=== PATIENT | female | born 1995 | race Caucasian/White ===

== ENCOUNTER 2021-02-21 06:48 | Inpatient (IN) | payer OTHER, SELFPAY ==
[2021-02-20 16:09] VITALS: BP 137/80; PULSE 75; TEMP 36.3
[2021-02-20 16:23] VITALS: BMI 44.5
[2021-02-20] MEDS: 0.9% Normal Saline Single 100 ML IV.SOLN. INTRA-UTER (16:44)
--- NOTE | 2021-02-20 16:44 | PCM.HP.OB ---
HPI - General HPI Narrative FLORENCIA AQUINO is a 26 F who presents Maternal Data Information Final KATHIE: 02/13/21 Gestational age: 41 0/7 weeks PFSH PFSH Home Medications [id number] [] 1 tab PO DAILY 02/20/21 [History Last Taken 02/19/21] Allergy/AdvReac Type Severity Reaction Status Date / Time No Known Allergies Allergy Verified 02/20/21 16:23 NST FHR Rate Baby A Baseline: normal Variability:: Moderate Accelerations:: 15 x 15 Decelerations:: None NST Reactive:: Yes FHR Category:: Category I Uterine Activity:: irreg ctxs ROS Constitutional Constitutional: Denies fatigue, fever(s) or malaise Eyes Eyes: Denies change in vision ENT HEENT: Denies dizziness or headache(s) Cardiovascular Cardiovascular: Denies chest pain, dyspnea or lightheadedness Respiratory/Chest Respiratory/Chest: Denies cough or dyspnea Gastrointestinal Gastrointestinal: Denies change in bowel habits Genitourinary Genitourinary: Denies burning urination or genital lesions Integumentary Integumentary: Denies rash Neurologic Neurologic: Denies confusion, dizziness, headache(s), numbness or weakness Vital Signs Vital Signs Vital Signs: 02/20/21 16:09 Temperature 97.3 F L Temperature Source Temporal Pulse Rate 75 Blood Pressure 137/80 H BP Systolic 137 BP Diastolic 80 Weight Weight: 129 kg Body Mass Index (BMI) 44.5 Physical Exam Const alert and no apparent distress General Appearance: cooperative HEENT normocephalic Resp normal respiratory effort Cardio regular rate GI soft to palpation GI Narrative: gravid, nontender, appropriate for gestational age Extremity no calf tenderness General Extremity: edema Skin no wounds Rashes: No rashes noted Psych activity/motor behavior normal Labs Labs Labs: No Data to Display Assessment & Plan (1) 41 weeks gestation of : PLAN: 26-year-old 2 para 0 at 41-0/7 weeks gestation for induction of labor due to late term . Cervix 1/60/-3, mid poistion, firm. Risk benefits altered is and personnel involved with outpatient cervical ripening with Russell catheter were reviewed with the patient, questions were answered to her satisfaction, consent was signed and she desired to proceed. Will return in the morning for induction, or as needed for labor or spontaneous rupture of membranes. Discussed with the patient expectations. Procedure note: After reactive NST was performed, Russell was placed over a stylette in the usual sterile fashion. The balloon was inflated to 30 cc. Placement over the internal os was confirmed. Patient and fetus tolerated the procedure well.
[2021-02-21] VITALS (46 sets, daily range): BP systolic 91–137; BP diastolic 50–79; PULSE 61–190; TEMP 36.2–37.1; O2SAT 82–100; BMI 44.5
[2021-02-21] MEDS: Lactated Ringers 1,000 ML 50 ML IV (08:05)
--- NOTE | 2021-02-21 08:16 | PCM.PN.BLA ---
Progress Note Patient reports Russell bulb came out around 1 AM. Vaginal exam /-2. AROM performed thin meconium appreciated. Will start Pitocin and anticipate a normal spontaneous vaginal delivery. heart rate category 1.
[2021-02-21] MEDS: Oxytocin 30 units/NS 500 ml 30 UNITS/500 ML IV.SOLN IV (08:19)
[2021-02-21 08:29] LABS: Absolute Lymphocyte Count 1.75 X10^3/uL (0.83-4.51); Absolute Neutrophil Count 7.9 X10^3/uL (2.0-7.7); Basophil# 0.02 X10^3/uL; Basophil% 0.2 % (0-1); Eosinophil# 0.08 X10^3/uL; Eosinophils% 0.8 % (0-5); Hematocrit 33.3 % (37-47); Hemoglobin 10.9 g/dL (12.0-15.0); Lymphocyte # 1.75 X10^3/ul (0.83-4.51); Lymphocyte % 16.7 % (19-41); Mean Corp Hgb Conc 32.7 g/dL (32-36); Mean Corpuscular Hgb 26.5 pg (27.0-32.0); Mean Platelet Vol. 11.3 fl (6.2-12.0); Monocyte# 0.75 X10^3/uL; Monocyte% 7.1 % (0-10); NRBC Flagged by Analyzer 0 % (0-5); Neutrophil # 7.86 X10^3/uL (2.7-7.7); Neutrophil % 74.7 % (47-70); Platelet Count 231 K/mm3 (150-450); RBC Distribution Width CV 13.2 % (11.6-14.6); RBC Distribution Width SD 38.6 fl (35.1-43.9); Red Blood Count 4.11 M/mm3 (4.2-5.4); White Blood Count 10.5 K/mm3 (4.4-11.0)
[2021-02-21] MEDS: Lactated Ringers 500 ML 999 ML IV ×3 (13:59→21:18)
[2021-02-21] MEDS: fentaNYL-bupivacaine (epidural) 100 ML BAG EPIDURAL ×3 (15:48→23:30)
[2021-02-21] MEDS: Lactated Ringers 1,000 ML 200 ML IV (18:37)
[2021-02-22] VITALS (85 sets, daily range): BP systolic 102–141; BP diastolic 53–88; PULSE 65–100; RESP 13–20; TEMP 36.1–38.9; O2SAT 93–100
[2021-02-22] MEDS: Lactated Ringers 1,000 ML 200 ML IV ×2 (00:14→04:44)
[2021-02-22] MEDS: fentaNYL-bupivacaine (epidural) 100 ML BAG EPIDURAL (04:44)
[2021-02-22] MEDS: Ondansetron 4 MG/2 ML Vial IV (04:50)
[2021-02-22] MEDS: Acetaminophen 500 MG Tablet PO (05:59)
--- NOTE | 2021-02-22 07:28 | PCM.PN.BLA ---
Progress Note Patient seen at bedside and evaluated. tachycardia 170s 180s with variable decelerations. Patient has been complete and pushing for approximately 2-1/2 hours. station still at +1 small caput noted. Thick meconium appreciated. Upon evaluation minimal descent of the head not adequate enough for vacuum placement at this time. Discussion with the patient for primary section due to tachycardia remote from delivery. We discussed the risk and benefits of continued pushing versus proceeding with a section patient would like to proceed with a at this time. Patient was counseled on the risks of section including but not limited to infection, bleeding, injury to pelvic structures including bladder bowel and vessels. ampicillin, gentamicin, clindamycin will be started for suspected AAA.
[2021-02-22] MEDS: Sodium Citrate/Citric Acid 30 ML UDC PO (07:34)
--- NOTE | 2021-02-22 09:20 | PLAC_PTH ---
PATIENT: FLORENCIA AQUINO LOC: [facility] U#:[id number] AGE/SX: 26/F ROOM: WP016 RE02/21/[address]: Dr. Arelis Shelley, MDDOB: 1995 BED: 1 DIS: 02/24/2021 SPEC #: [id number] RECD: 02/22/21 13:14 STATUS: MARCELLA RUSTY #: [id number] MALIA: 02/22/21 09:[address]: Arelis Shelley DEPT: SURGICAL PATHOLOGY RECD BY: Baylee Rajput ENTERED: 02/25/21 08:03 SP TYPE: PLACENTA OTHR DR: No Primary Care Phys Tissues: Placenta, NOS Procedures: Surgery Specimen Level V HEADER OPERATION: section PRE-OP DIAGNOSIS: Suspect triple I TISSUE SUBMITTED: Placenta MICROSCOPIC DIAGNOSIS Edwards placenta (505 gm): Umbilical cord ? trivascular with acute funisitis. Placental membranes ? acute chorioamnionitis and acute deciduitis. Placental disc ? acute vasculitis of superficial placental vessels, intravillous congestion, increased intraparenchymal fibrin plaques and microcalcifications. AM:michelle 02/26/2021 MICROSCOPIC DESCRIPTION Slides are reviewed. GROSS DESCRIPTION SPECIMEN: PLACENTA / CLINICAL INFORMATION: A. Weight: 3.52 kg B. Gestational Age: 41 weeks C. Sex: Female PLACENTAL WEIGHT (POST FIXATION): 505 gm PLACENTAL DIMENSIONS: 21 x 19 x 2.5 cm PLACENTAL SHAPE: Usual ovoid PLACENTAL WEIGHT FOR GESTATIONAL AGE: Within 10-99th percentile MEMBRANES - Present A. Insertion: Marginal B. Site of rupture from edge: At edge of placental disc C. Color of membrane: Anderson-bird D. Abnormalities: None UMBILICAL CORD - Present A. Color: Anderson-bird B. Insertion: Paracentral C. Length: 38 cm D. Diameter: 1.3 cm E. Number of vessels: Three F. Abnormalities: None PLACENTAL DISC - Present A. Color of surface: Anderson-bird B. surface abnormalities: None C. Maternal cotyledons: Intact with minimal tears D. Attached retro placental clot: No clot E. Cut surface: Dark red and spongy F. Lesions: None G. Separate clot: 7 x 5 x 2 cm SECTIONS SUBMITTED: 1. Umbilical cord ( end notched) 2. Umbilical cord, placental end 3. Membrane roll 4. Placental disc, and maternal surfaces 5. Placental disc, and maternal surfaces 6. Placental disc, and maternal surfaces AM:michelle 02/25/21 TC:2 CPT: 39047
--- NOTE | 2021-02-22 09:24 | EX.PCM.OBRPT ---
Assessment & Plan (1) Arrest of descent, delivered, current hospitalization: (2) tachycardia: (3) Meconium in amniotic fluid affecting management of mother: (4) Delivery by section: Maternal Data Information Final KATHIE: 02/13/21 Final KATHIE Source: US <20 weeks Gestational age: 41.2 Details Operative Information Date of Procedure: 02/22/21 Pre-Operative Diagnosis: tachycardia, Arrest of descent, suspect Triple I, suspect CPD, meconium fluid Post-Operative Diagnosis: same, live female , Hemorrhage associated with C/S. 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 ) Antibiotic Given: Clindamycin 600mg IV x1 and Gentamicin 1.5mg/kg IV x1 and - (ampcillin 2grams) Drain: Russell to straight drain Estimated Blood Loss: 1000 Fluids Replaced: 600 Procedure Start Time: 08:13 Procedure Stop Time: 09:25 Time of Delivery: 08:15 Findings Description of Procedure: After informed consent was obtained the patient was taken the operating room. At this time the infant's head was disengaged from the maternal pelvis. She was prepped and draped in the normal sterile fashion. Epidural anesthesia was found to be inadequate. Decision at this time was to put the patient under general anesthesia. Once general anesthesia was induced and airway secured procedure started. At this time a Pfannenstiel skin incision was made with a knife was carried down to the underlying layer of the fascia. The fascial incision was then extended laterally using curved Dong scissor. attention was then turned to the superior aspect of the fascial edge was grasped with 2 straight Matthew clamps tented up and the rectus muscle dissected off sharply using curved Dong scissor. Attention was then turned to the inferior aspect where again Max clamps were placed in the rectus muscles were tented up and the fascia was dissected off sharply using the curved Dong scissor. Rectus muscles were then in the midline bluntly and peritoneum was entered bluntly. Gentle opposing traction was placed. At this time the vesicouterine peritoneum was identified. Scalpel was used to make a uterine incision in a low transverse fashion. The uterus was then entered bluntly gentle opposing traction was placed to extend this incision. With assistance from below 's head was disengaged from the pelvis. Infant's head was brought to the uterine incision was delivered atraumatically. Cord was clamped and cut was handed to the waiting nursery team. Thick meconium was again appreciated. The Placenta was removed from the uterus. The uterus was then removed from the abdominal cavity. Bilateral extensions down uterus were appreciated. The extensions were grasped with Krishnamurthy's and rings. Extensions were reapproximated using #1 Vicryl in a running locked fashion. The uterus was cleared of all clots and debris using a lap. At this time the uterine incision was reapproximated using #1 Vicryl in a running locked fashion, followed by a second layer. Bilateral extensions were reevaluated multiple times very small amount of oozing was appreciated. Decision to place Surgicel and FloSeal. Areas were monitored minimal pulling was appreciated. posterior cul-de-sac was then cleared of all clots and debris. Uterus was placed back in the abdominal cavity. Gutters were cleared of all clots and debris. Uterine incision was reevaluated and noted to be of excellent hemostasis. Bilateral extensions were again evaluated minimal pooling noted. Decision at this time to continue with closure. At this time the peritoneum was grasped with Kellys reapproximated using #2 Vicryl suture in a running fashion. Fascia was then reapproximated using #1 Vicryl in a running fashion. Subcu layer was reapproximated with #2 0 plain gut suture in an interrupted fashion. Subcu layer was closed using 4-0 Monocryl in a subcu fashion. Dry sterile dressing was applied. Instrument lap needle count correct ?2. Anticipated normal postoperative course. Presentation: Positive for Vertex Amniotic Membrane Rupture Type: Artificial Amniotic Fluid Description: Thick meconium Placental Delivery Description: Manual Removal Placenta Disposition: Routine to Lab Specimen(s) Sent to Pathology: placenta Cord Vessel Description: 3 Vessels Cord Entanglement: None Cord Gases: ABG and VBG Infant A Gender: Female (1 minute): 6 (5 minute): 9 Delayed Cord Clamping: No Complications Risks of Surgery Discussed w/Patient: Bleeding, Anesthesia Risks, Infection, Injury to surrounding structure(s) including bowel and bladder and Availability of other non-permanent control options Complications: bilateral extensions - discussed with recommend scheduled repeat cs for any future pregnancies. Admit VTE Documentation VTE Present on Admission: Yes VTE Mechan Device Prophylaxis: SCD's VTE Pharm Prophylaxis Ordered: Yes
[2021-02-22] MEDS: Oxytocin 30 units/NS 500 ml 30 UNITS/500 ML IV.SOLN 167 UNITS IV (09:35)
[2021-02-22] MEDS: Acetaminophen 500 MG Tablet 1000 MG PO ×2 (11:47→18:15)
[2021-02-22 12:09] LABS: Hematocrit 29.5 % (37-47); Hemoglobin 9.5 g/dL (12.0-15.0); Mean Corp Hgb Conc 32.2 g/dL (32-36); Mean Corpuscular Hgb 26.4 pg (27.0-32.0); Mean Corpuscular Volume 81.9 fL (81-99); Mean Platelet Vol. 11.4 fl (6.2-12.0); Platelet Count 216 K/mm3 (150-450); RBC Distribution Width CV 13.2 % (11.6-14.6); RBC Distribution Width SD 39.3 fl (35.1-43.9); White Blood Count 27.6 K/mm3 (4.4-11.0)
[2021-02-22 12:23] LABS: Anion Gap 9 (5-15); BUN 6 mg/dL (7-18); BUN/Creat Ratio 9.9 RATIO (10-20); Calcium,Total 8.1 mg/dL (8.5-10.1); Chloride 108 mmol/L (98-107); EST Glomerular Filtration Rate 126 mL/min (>60); Est Glom Filt Rate - Afr Amer 153 mL/min (>60); Estimated Creatinine Clearance 136.96 ml/min; Glucose 109 mg/dL (74-106); Potassium 3.7 mmol/L (3.5-5.1); Sodium Level 138 mmol/L (136-145)
[2021-02-22] MEDS: HYDROmorphone 1 MG/ML Syringe IV ×2 (12:51→22:47)
[2021-02-22] MEDS: Lactated Ringers 1,000 ML 100 ML IV (12:51)
[2021-02-22] MEDS: Ketorolac 30 MG/ML Syringe IV ×2 (13:12→19:07)
--- NOTE | 2021-02-22 17:35 | NURSING ---
epidural cathether removed. blue tip intact. pt tolerated well
[2021-02-22 18:30] LABS: Hematocrit 27.6 % (37-47); Mean Corp Hgb Conc 32.6 g/dL (32-36); Mean Corpuscular Hgb 26.8 pg (27.0-32.0); Mean Corpuscular Volume 82.1 fL (81-99); Mean Platelet Vol. 10.8 fl (6.2-12.0); Platelet Count 210 K/mm3 (150-450); RBC Distribution Width CV 13.3 % (11.6-14.6); RBC Distribution Width SD 39.9 fl (35.1-43.9); Red Blood Count 3.36 M/mm3 (4.2-5.4); White Blood Count 28.5 K/mm3 (4.4-11.0)
[2021-02-22] MEDS: Lactated Ringers 500 ML IV.SOLN. IV (19:07)
[2021-02-22] MEDS: Enoxaparin 40 MG/0.4 ML Syringe SC (21:09)
[2021-02-23] VITALS (77 sets, daily range): BP systolic 91–120; BP diastolic 42–65; PULSE 61–149; RESP 14–18; TEMP 36.4–37.1; O2SAT 83–100
[2021-02-23] MEDS: Acetaminophen 500 MG Tablet 1000 MG PO ×4 (00:09→18:29)
[2021-02-23] MEDS: Ketorolac 30 MG/ML Syringe IV ×2 (01:00→06:56)
[2021-02-23] MEDS: HYDROmorphone 1 MG/ML Syringe IV (03:28)
[2021-02-23] MEDS: 0.9% Saline Lock 10 ML Syringe IV ×2 (03:29→06:56)
[2021-02-23 05:42] LABS: Hemoglobin 7.5 g/dL (12.0-15.0); Mean Corp Hgb Conc 32.6 g/dL (32-36); Mean Corpuscular Hgb 26.9 pg (27.0-32.0); Mean Corpuscular Volume 82.4 fL (81-99); Mean Platelet Vol. 10.9 fl (6.2-12.0); Platelet Count 177 K/mm3 (150-450); RBC Distribution Width CV 13.4 % (11.6-14.6); RBC Distribution Width SD 40.2 fl (35.1-43.9); Red Blood Count 2.79 M/mm3 (4.2-5.4)
[2021-02-23] MEDS: Lactated Ringers 1,000 ML 100 ML IV (07:36)
[2021-02-23] MEDS: oxyCODONE 5 MG Tablet PO ×3 (08:17→17:16)
--- NOTE | 2021-02-23 09:06 | PCM.PN.OB ---
Subjective Subjective patient seen at bedside, doing well. Patient reports good pain control. lochia mild. Pt reports some dizziness when ambulating. Denies CP, SOB. Pt reports voiding w/o difficulty. Not passing flatus yet. breast feeding. Objective Data Objective Data Vital Signs: Vital Signs Temp Pulse Resp BP Pulse Ox 97.8 F 88 18 97/54 L 98 02/23/21 07:39 02/23/21 07:40 02/23/21 07:40 02/23/21 07:39 02/23/21 07:40 Oxygen Delivery Method Room Air Weight: 129 kg Body Mass Index (BMI) 44.5 Intake & Output: Intake and Output for Last 24 Hours 02/21/21 02/22/21 02/23/21 23:59 23:59 23:59 Intake Total 3543.01 / 3543.01 4464.09 / 4464.09 545.33 / 545.33 Output Total 1650 / 1650 1125 / 1125 600 / 600 Balance 1893.01 / 1893.01 3339.09 / 3339.09 -54.67 / -54.67 Lab / Micro Data Result Diagrams: 02/23/21 05:35 02/22/21 11:40 Labs: Laboratory Results - last 24 hr 02/22/21 02/22/21 02/22/21 11:40 11:40 18:18 WBC 27.6 H 28.5 H RBC 3.60 L 3.36 L Hgb 9.5 L 9.0 L Hct 29.5 L 27.6 L MCV 81.9 82.1 MCH 26.4 L 26.8 L MCHC 32.2 32.6 RDW Std Deviation 39.3 39.9 RDW Coeff of Cecilio 13.2 13.3 Plt Count 216 210 MPV 11.4 10.8 Sodium 138 Potassium 3.7 Chloride 108 H Carbon Dioxide 21.0 Anion Gap 9 BUN 6 L Creatinine 0.60 Estim Creat Clear Calc 136.96 Est GFR (MDRD) Af Amer 153 Est GFR (MDRD) Non-Af 126 BUN/Creatinine Ratio 9.9 L Glucose 109 H Calcium 8.1 L 02/23/21 05:35 WBC 20.0 H RBC 2.79 L Hgb 7.5 L Hct 23.0 L MCV 82.4 MCH 26.9 L MCHC 32.6 RDW Std Deviation 40.2 RDW Coeff of Cecilio 13.4 Plt Count 177 MPV 10.9 Sodium Potassium Chloride Carbon Dioxide Anion Gap BUN Creatinine Estim Creat Clear Calc Est GFR (MDRD) Af Amer Est GFR (MDRD) Non-Af BUN/Creatinine Ratio Glucose Calcium Physical Exam Narrative dressing dry and intact. Const alert and oriented x3 General Appearance: cooperative HEENT normocephalic Neck General: normal visual inspection GI soft to palpation and non-distended GI Narrative: Fundus firm Extremity normal to inspection and no calf tenderness Skin no rashes or lesions noted Neuro oriented x3 and CN's II-XII intact bilaterally Psych mental status grossly normal Assessment & Plan (1) Delivery by section: PLAN: POD#1 , Acute on chornic blood loss anemia - estimated blood loss using perinatology calc is 1345ml Suspected Triple I- continue antibiotics until tomorrow 02/24/21 (48hrs post op) Acute on chronic blood loss anemia- transfuse 2u PRBC- repeat CBC 4hrs after transfusion and repeat tmrw start ferrous sulfate 325mg PO BID pain mgmt monitor VS ambulation
[2021-02-23] MEDS: Enoxaparin 40 MG/0.4 ML Syringe SC ×2 (09:11→22:32)
[2021-02-23] MEDS: Senna/Docusate Sodium 1 Tablet PO (10:47)
[2021-02-23] MEDS: Ferrous Sulfate 325 MG Tablet PO ×2 (12:00→18:30)
[2021-02-23] MEDS: Ibuprofen 600 MG Tablet PO ×2 (13:11→19:17)
--- NOTE | 2021-02-23 15:01 | NURSING ---
Report given to Joanna Montgomery RN, who will now assume care of this couplet at this time.
[2021-02-23 22:00] LABS: Absolute Lymphocyte Count 1.46 X10^3/uL (0.83-4.51); Absolute Neutrophil Count 16.5 X10^3/uL (2.0-7.7); Basophil# 0.02 X10^3/uL; Basophil% 0.1 % (0-1); Eosinophil# 0.14 X10^3/uL; Eosinophils% 0.7 % (0-5); Gentamicin, Random 0.9 ug/mL; Hematocrit 27.4 % (37-47); Hemoglobin 8.9 g/dL (12.0-15.0); Lymphocyte # 1.46 X10^3/ul (0.83-4.51); Lymphocyte % 7.5 % (19-41); Mean Corp Hgb Conc 32.5 g/dL (32-36); Mean Corpuscular Hgb 27.1 pg (27.0-32.0); Mean Corpuscular Volume 83.3 fL (81-99); Mean Platelet Vol. 11.4 fl (6.2-12.0); Monocyte# 1.03 X10^3/uL; Monocyte% 5.3 % (0-10); NRBC Flagged by Analyzer 0 % (0-5); Neutrophil # 16.47 X10^3/uL (2.7-7.7); Neutrophil % 85.2 % (47-70); Platelet Count 219 K/mm3 (150-450); RBC Distribution Width CV 13.9 % (11.6-14.6); RBC Distribution Width SD 42.1 fl (35.1-43.9); Red Blood Count 3.29 M/mm3 (4.2-5.4); White Blood Count 19.4 K/mm3 (4.4-11.0)
[2021-02-24] MEDS: oxyCODONE 5 MG Tablet PO (00:07)
[2021-02-24] MEDS: Ibuprofen 600 MG Tablet PO ×3 (01:05→12:46)
[2021-02-24] MEDS: Acetaminophen 500 MG Tablet 1000 MG PO ×3 (01:06→12:46)
[2021-02-24 01:13] VITALS: BP 111/64; PULSE 83; RESP 18; TEMP 36.6; O2SAT 97
[2021-02-24 06:01] LABS: Hematocrit 25.6 % (37-47); Hemoglobin 8.3 g/dL (12.0-15.0); Mean Corp Hgb Conc 32.4 g/dL (32-36); Mean Corpuscular Hgb 26.6 pg (27.0-32.0); Mean Corpuscular Volume 82.1 fL (81-99); Mean Platelet Vol. 10.8 fl (6.2-12.0); Platelet Count 216 K/mm3 (150-450); RBC Distribution Width SD 41.1 fl (35.1-43.9); Red Blood Count 3.12 M/mm3 (4.2-5.4); White Blood Count 17.8 K/mm3 (4.4-11.0)
[2021-02-24 08:09] VITALS: BP 117/60; PULSE 79; PULSE 82; RESP 16; TEMP 36.6; O2SAT 98
[2021-02-24] MEDS: 0.9% Saline Lock 10 ML Syringe IV (10:11)
[2021-02-24] MEDS: Senna/Docusate Sodium 1 Tablet PO (10:11)
[2021-02-24] MEDS: Enoxaparin 40 MG/0.4 ML Syringe SC (11:24)
[2021-02-24] MEDS: Ferrous Sulfate 325 MG Tablet PO (12:46)
[2021-02-24 13:02] LABS: Hematocrit 26.4 % (37-47); Hemoglobin 8.5 g/dL (12.0-15.0); Mean Corp Hgb Conc 32.2 g/dL (32-36); Mean Corpuscular Hgb 26.7 pg (27.0-32.0); Mean Platelet Vol. 10.7 fl (6.2-12.0); Platelet Count 233 K/mm3 (150-450); RBC Distribution Width CV 14.1 % (11.6-14.6); RBC Distribution Width SD 42.4 fl (35.1-43.9); Red Blood Count 3.18 M/mm3 (4.2-5.4); White Blood Count 16.6 K/mm3 (4.4-11.0)
[2021-02-24 14:36] VITALS: BP 117/68; PULSE 94; RESP 16; TEMP 36.5; O2SAT 98
[2021-02-24 14:43] VITALS: BP 117/68; PULSE 93
--- NOTE | 2021-02-26 12:20 | PCM.DC.BLA ---
Discharge Summary Date of Admission: 02/20/21 Date of Discharge: 02/24/21 Summary: pt was admitted to L&D for IOL for post dates. pt progressed to fully dilated and pushed for 2+hrs with arrest of descent, suspected Triple I, suspected CPD- pt underwent primary low transverse cs with EBL 1000cc. pt on POD#1 received 2u PRBC due to acute blood loss anemia. pt received 48hr antibiotic therapy with Ampicillin/ gentamicin/ clindamycin. pt was discharged home on POD #2 in stable condition. Meaningful Use Info Meaningful Use Diagnoses (Choose all that apply): None applicable Discharge Plan Admission Admit Date/Time: 02/21/21 06:48 Attending Provider: Arelis Shelley Primary Care Provider: Care PhysicianMissy Primary Instructions Forms: Information Patient Instructions: After a , : Caring for Yourself Discharge Orders/Prescriptions Prescriptions: No Action 1 mg Tablet 1 tab PO DAILY RF: 0 famotidine [Pepcid] 20 mg Tablet 20 mg PO BID RF: 0 albuterol 90 mcg/actuation Aerosol 1 - 2 mcg INHALATION PRN PRN (Reason: Breathing) RF: 0 acetaminophen [Tylenol] 325 mg Capsule 650 mg PO Q6H PRN (Reason: Pain) RF: 0 Referrals / Follow Up: Iqra Villagran MD [STAFF PHYSICIAN] - Disposition Disposition (needs filled in before D/C Order can be placed): Home, Self Care
[2021-02-26 14:01] LABS: Pathology Specimen OB SEE PATHOLOGY REPORT
== END 2021-02-24 15:40 | disposition home or self-care (01) | DRG 786 ==
LOC: WPOUT 07:04 → WP 02-22 08:26
PROVIDERS: Advanced Practice Midwife; Obstetrics & Gynecology; Admitting Provider Obstetrics & Gynecology; Referring Provider Obstetrics & Gynecology; Visit Provider Obstetrics & Gynecology
DX: O48.0 Post-term pregnancy (principal); O41.1230 Chorioamnionitis, third trimester, not applicable or unspecified; D62 Acute posthemorrhagic anemia; O65.9 Obstructed labor due to maternal pelvic abnormality, unspecified; O90.81 Anemia of the puerperium; O62.1 Secondary uterine inertia; O76 Abnormality in fetal heart rate and rhythm complicating labor and delivery; O77.0 Labor and delivery complicated by meconium in amniotic fluid; Z3A.41 41 weeks gestation of pregnancy; Z37.0 Single live birth
CPT/HCPCS: 36415; 59025; 59050; 80048; 80170; 85025; 85027; 86850; 86900; 86901; 86920; 86922; 88307; 99218; J7120; P9040; A4216; G0378; J2405

== ENCOUNTER → 2023-05-07 | Outpatient (CLI) | payer OTHER, SELFPAY ==
--- NOTE | 2023-05-07 09:05 | US_ITS ---
STUDY: FIRST TRIMESTER OBSTETRICAL ULTRASOUND REASON FOR EXAM: Female, 28 years old THREATENED LMP: March 21, 2023. TECHNIQUE: Transvaginal TECHNICAL QUALITY: Adequate. PRIOR ULTRASOUND: None. FINDINGS: There is visualization of a single gestational sac in a normal intrauterine position. The mean sac diameter (MSD) measures 1.47 cm, indicating an estimated gestational age (EGA) of 6 weeks, 2 days. The gestational sac shape is irregular. There is no demonstrated yolk sac. The placenta is non-visualized. There is no demonstrated embryo ( pole). The estimated gestation age (EGA) by LMP is 8 weeks, 5 days. The estimated date of delivery (KATHIE) by LMP is December 12, 2023. The estimated gestation age (EGA) by US is 6 weeks, 2 days. The estimated date of delivery (KATHIE) by US is December 29, 2023. The uterus measures 7.3 cm x 6.3 cm x 4.1 cm a nabothian cyst is seen in the cervix.. There is no demonstrated uterine fibroid. The cervix is closed. The right ovary measures 2.8 cm x 1.9 cm x 1.8 cm. There is no right ovarian cyst. There is no visualized right adnexal mass or complex lesion. The left ovary measures 4.3 cm x 3 cm x 2.5 cm. A corpus luteum cyst is seen in the left ovary measuring 2.4 cm x 2.1 cm x 2 cm. There is no visualized left adnexal mass or complex lesion. There is no fluid in the cul de sac. US/Init OB < 14Wks US IMPRESSION: Intrauterine gestational sac corresponding to a gestational age of 6 weeks and 2 days. No yolk sac or pole is seen. The sac is irregular in contour. Follow-up with beta hCG is recommended. Electronically Signed: Donell Resendez MD at 10:36 EDT ,
== END | disposition home or self-care (01) ==
PROVIDERS: Referring Provider Obstetrics & Gynecology; Visit Provider Obstetrics & Gynecology
DX: O20.0 Threatened abortion (principal); Z3A.00 Weeks of gestation of pregnancy not specified
CPT/HCPCS: 76801

== ENCOUNTER 2025-06-13 09:27 | Inpatient (IN) | payer OTHER, SELFPAY ==
[2025-06-13] VITALS (18 sets, daily range): BP systolic 98–126; BP diastolic 62–89; PULSE 55–97; RESP 15–16; TEMP 35.5–36.7; O2SAT 16–98; BMI 43.4
[2025-06-13] MEDS: Lactated Ringers 1,000 ML 999 ML IV (10:00)
[2025-06-13 10:22] LABS: Hematocrit 33.3 % (37-47); Hemoglobin 11.5 g/dL (12.0-15.0); Immature Granulocytes Count 0.090 X10^3/uL (0.0-0.0); Mean Corp Hgb Conc 34.5 g/dL (32-36); Mean Corpuscular Volume 84.7 fL (81-99); Mean Platelet Vol. 11.4 fl (6.2-12.0); NRBC Flagged by Analyzer 0 % (0-5); Platelet Count 174 K/mm3 (150-450); RBC Distribution Width CV 13.0 % (11.6-14.6); RBC Distribution Width SD 39.6 fl (35.1-43.9); Red Blood Count 3.93 M/mm3 (4.2-5.4); White Blood Count 11.3 K/mm3 (4.4-11.0)
[2025-06-13 10:47] LABS: Syphilis Antibodies Nonreactive (Nonreactive)
[2025-06-13] MEDS: Lactated Ringers 1,000 ML 150 ML IV (11:00)
--- NOTE | 2025-06-13 11:32 | PCM.HP.OB ---
HPI - General General Date of Admission: 06/13/25 Date of Service: 06/13/25 HPI Narrative FLORENCIA AQUINO, is a 30 F who presents scheduled repeat Maternal Data Information Final KATHIE: 06/19/25 Gestational age: 39+1 PFSH PFSH Medical History Asthma Home Medications ?Medication ?Instructions ?Recorded ?Last Taken ?Type uokfousd-vfs-Bi-FA 1 mg 1 tab PO DAILY Check with primary 02/20/21 02/19/21 History tablet doctor acetaminophen 325 mg capsule 650 mg PO Q6H PRN Pain 02/21/21 Unknown History (Tylenol) albuterol 90 mcg/actuation aerosol 1 - 2 mcg inhalation PRN PRN 02/21/21 Unknown History inhaler Breathing famotidine 20 mg tablet (Pepcid) 20 mg PO BID heartburn 02/21/21 02/21/21 History Allergy/AdvReac Type Severity Reaction Status Date / Time No Known Allergies Allergy Verified 06/13/25 09:54 Surgical History History of biopsy Social History Smoking Status: Never smoker History 2 Elective abortions Hx Para 1 Spontaneous abortions Hx # Term Pregnancies Ectopic pregnancies Hx # Pregnancies Multiple births # of living children ROS Constitutional Constitutional: Denies fatigue, fever(s) or malaise Eyes Eyes: Denies change in vision ENT HEENT: Denies dizziness or headache(s) Cardiovascular Cardiovascular: Denies chest pain, dyspnea or lightheadedness Respiratory/Chest Respiratory/Chest: Denies cough or dyspnea Gastrointestinal Gastrointestinal: Denies change in bowel habits Genitourinary Genitourinary: Denies burning urination or genital lesions Integumentary Integumentary: Denies rash Neurologic Neurologic: Denies confusion, dizziness, headache(s), numbness or weakness Vital Signs Vital Signs Vital Signs: Weight Weight: 125.645 kg Body Mass Index (BMI) 43.4 Physical Exam Const alert and no apparent distress General Appearance: cooperative HEENT normocephalic Resp normal respiratory effort Cardio regular rate GI soft to palpation GI Narrative: gravid, nontender, appropriate for gestational age Extremity no calf tenderness General Extremity: edema Skin no wounds Rashes: No rashes noted Psych activity/motor behavior normal Labs Labs Labs: Blood Type O POSITIVE Antibody Screen NEGATIVE Hct, (37-47) 33.3 % L Hgb, (12.0-15.0) 11.5 g/dL L Obstetrics Ultrasound Syphilis Total Ab, (Nonreactive) Nonreactive Rhogam given: No Assessment & Plan (1) Previous section complicating : (2) 39 weeks gestation of : PLAN: Plan repeat
[2025-06-13] MEDS: Lactated Ringers 1,000 ML 1000 ML IV (12:07)
[2025-06-13] MEDS: Cefazolin 3 GM in 0.9% Normal Saline (100mL Bag) 100 ML IV (12:07)
[2025-06-13] MEDS: Cefazolin 1 GM/5 ML Vial 3 GM IV (12:07)
--- NOTE | 2025-06-13 13:13 | OP.PCM_ITS ---
Assessment & Plan (1) Previous section complicating : (2) Delivery by section: (3) 39 weeks gestation of : Maternal Data Information Final KATHIE: 06/19/25 Gestational age: 39+1 Operative Report (OB) Procedure Details Date of Procedure: 06/13/25 Procedure Start Time: 12:35 Procedure Stop Time: 13:18 Time of Delivery: 12:39 Pre-Operative Diagnosis: Repeat Elective Post-Operative Diagnosis: Same as Pre-operative diagnosis Classification: Scheduled Type of Anesthesia: Spinal Antibiotic Given: Ancef 3 grams IV x1 Drain: Russell to straight drain Estimated Blood Loss: 1000 cc Findings Description of surgery: Patient taken to the OR with spinal and Russell were placed. She was prepped and draped in the normal sterile fashion. A Pfannenstiel incision was made and carried down to the underlying fascia. The fascia was incised in the midline and extended laterally. The fascia was dissected from the muscle. The muscles divided in the midline. The peritoneum was entered bluntly and extended manually. A bladder blade was placed. A bladder flap was created. A low transverse incision was made and extended bluntly. The head was elevated to the incision. The shoulders delivered easily. The cried upon delivery. The cord was cut and clamped. The placenta was delivered with elvie traction. The uterus was exteriorized and cleared of all clot and debris. The incision was repaired with 1-0 Vicryl x 2. The uterus was returned the abdomen. The gutters were cleared of all clots. Hemoblast was placed over the incision. The peritoneum was closed with 2-0 Monocryl. The fascia was closed with 1-0 Vicryl. The subcutaneous tissue was reapproximated with 2-0 Monocryl. The skin was closed with 4-0. I performed the major parts of the procedure with the RFNA assisting with retraction and closing the skin. The sponge lap and needle count was correct x 2 Surgical findings: normal uterus, tubes and ovaries Presentation: Vertex Amniotic Membrane Rupture Type: Artificial Amniotic Fluid Description: Clear Placental Delivery Description: Spontaneous Placenta Disposition: [facility] Specimen collected: No Cord Vessel Description: 3 Vessels Cord Entanglement: None A gender: Female (1 minute): 8 (5 minute): 9 Delayed Cord Clamping: Yes [employer] dross puller: Yes Lavatory Attendant: Russell,Gisele Tasks completed by first sampler: Opening, Opening & closing and Retracting Additional [employer] assistant manager?: No Complications Complications: No
[2025-06-13] MEDS: Oxytocin 15 Units/NS 250ml 15 UNITS/250 ML IV.SOLN 83 UNITS IV (13:50)
[2025-06-13] MEDS: Ketorolac 30 MG/ML Syringe IV ×2 (14:43→21:04)
[2025-06-13] MEDS: Lactated Ringers 1,000 ML 100 ML IV (17:06)
[2025-06-13] MEDS: 0.9% Saline Lock 10 ML Syringe IV (21:04)
[2025-06-14 00:32] VITALS: RESP 16; O2SAT 98
[2025-06-14 03:05] VITALS: BP 110/63; PULSE 93; RESP 16; TEMP 36.4; O2SAT 96
[2025-06-14] MEDS: 0.9% Saline Lock 10 ML Syringe IV ×2 (03:17→08:47)
[2025-06-14] MEDS: Ketorolac 30 MG/ML Syringe IV ×2 (03:17→08:47)
[2025-06-14 05:48] LABS: Hematocrit 26.7 % (37-47); Hemoglobin 9.3 g/dL (12.0-15.0); Mean Corp Hgb Conc 34.8 g/dL (32-36); Mean Corpuscular Volume 85.6 fL (81-99); Mean Platelet Vol. 10.8 fl (6.2-12.0); Platelet Count 154 K/mm3 (150-450); RBC Distribution Width CV 13.1 % (11.6-14.6); RBC Distribution Width SD 39.9 fl (35.1-43.9); Red Blood Count 3.12 M/mm3 (4.2-5.4); White Blood Count 14.0 K/mm3 (4.4-11.0)
--- NOTE | 2025-06-14 06:13 | PCM.PN.OB ---
Subjective Subjective Doing well. Ambulating and voiding without difficulty. Mild lochia. Breast feeding. Objective Data Objective Data Vital Signs: Vital Signs Temp Pulse Resp BP Pulse Ox O2 Del Method 97.6 F L 93 16 110/63 96 Room Air 06/14/25 03:05 06/14/25 03:05 06/14/25 03:05 06/14/25 03:05 06/14/25 03:05 06/14/25 03:05 Oxygen Delivery Method Room Air Weight: 125.645 kg Body Mass Index (BMI) 43.4 Intake & Output: Intake and Output for Last 24 Hours 06/12/25 06/13/25 06/14/25 23:59 23:59 23:59 Intake Total 2109.17 / 2109.17 Output Total 1400 / 1400 200 / 200 Balance 709.17 / 709.17 -200 / -200 Lab / Micro Data 06/14/25 05:40 Labs: Laboratory Results - last 24 hr 06/13/25 10:00: WBC 11.3 H, RBC 3.93 L, Hgb 11.5 L, Hct 33.3 L, MCV 84.7, MCH 29.3, MCHC 34.5, RDW Std Deviation 39.6, RDW Coeff of Cecilio 13.0, Plt Count 174, MPV 11.4, Immature Gran % (Auto) 0.800, Neut % (Auto) 74.8 H, Lymph % (Auto) 17.2 L, [place] % (Auto) 6.1, Eos % (Auto) 0.8, Baso % (Auto) 0.3, Absolute Neuts (auto) 8.5 H, Absolute Lymphs (auto) 1.95, Nucleated RBC % 0, Syphilis Total Ab Nonreactive, Blood Type O POSITIVE, Antibody Screen NEGATIVE 06/14/25 05:40: WBC 14.0 H, RBC 3.12 L, Hgb 9.3 L, Hct 26.7 L, MCV 85.6, MCH 29.8, MCHC 34.8, RDW Std Deviation 39.9, RDW Coeff of Cecilio 13.1, Plt Count 154, MPV 10.8 ROS Constitutional Constitutional: Denies headache(s) Cardiovascular Cardiovascular: Denies chest pain or dyspnea Gastrointestinal Gastrointestinal: Denies nausea or vomiting Genitourinary Genitourinary: Denies dysuria Physical Exam Const alert General Appearance: cooperative Eyes PERRL and EOMs intact bilaterally Resp normal respiratory effort GI soft to palpation and non-tender GI Narrative: soft, moderate distention, fundus firm, appropriately tender. Abdominal bandage clean dry and intact Uterus Palpation: uterus fundus firm ( below umbilicus) Extremity normal to inspection and full ROM Neuro oriented x3 and CN's II-XII intact bilaterally Psych mental status grossly normal Assessment & Plan (1) Delivery by section: PLAN: Plan Possible discharge today
[2025-06-14 08:45] VITALS: BP 120/56; PULSE 61; RESP 16; TEMP 36.7; O2SAT 99
[2025-06-14 10:32] VITALS: PULSE 64; RESP 16; O2SAT 99
[2025-06-14] MEDS: Senna/Docusate Sodium 1 Tablet PO (10:39)
[2025-06-14 15:07] VITALS: BP 115/65; PULSE 83; RESP 16; TEMP 36.4; O2SAT 98
[2025-06-14 19:43] VITALS: BP 115/68; PULSE 72; RESP 17; TEMP 36.7; O2SAT 99
[2025-06-15 02:25] VITALS: BP 109/69; PULSE 67; RESP 15; TEMP 36.3; O2SAT 99
--- NOTE | 2025-06-15 06:45 | PCM.DC.SUM ---
Providers Date of Admission: 06/13/25 Primary Care Physician: No Primary Care Phys Reason For Visit: REPEAT C SECTION Diagnosis Discharge Diagnosis (1) Delivery by section: Status: Acute (2) Care and examination of lactating mother: Status: Acute Code(s): Z39.1 - Encounter for care and examination of lactating mother (3) Post-operative pain: Status: Acute Code(s): G89.18 - Other acute postprocedural pain Medications at Discharge Home Medications [id number] 1 mg tablet 1 tab PO DAILY Check with primary doctor 02/20/21 acetaminophen 325 mg capsule (Tylenol) 650 mg PO Q6H PRN Pain 02/21/21 albuterol 90 mcg/actuation aerosol inhaler 1 - 2 mcg inhalation PRN PRN Breathing 02/21/21 famotidine 20 mg tablet (Pepcid) 20 mg PO BID heartburn 02/21/21 acetaminophen 500 mg tablet 1,000 mg (2 x 500 mg) PO Q6 #0 tabs 06/15/25 ibuprofen 600 mg tablet 600 mg PO Q6H #0 tabs 06/15/25 oxycodone 5 mg tablet 5 - 10 mg (1 - 2 x 5 mg) PO Q4H PRN PRN Pain Score 4-10 3 days #10 tabs 06/15/25 sennosides 8.6 mg-docusate sodium 50 mg tablet (Stimulant Laxative Plus) 1 - 2 tab PO DAILY #0 tabs 06/15/25 Hospital Course Operations section Procedures None Summary of Care Provided Minutes Spent on Discharge: 15 Hospital Course: Patient had section. Hospital course was uneventful. Physical Exam Narrative Patient seen at bedside. Ambulating and voiding without difficulty. Passing flatus. without difficulty. Denies headache, vision changes, SOB< or CP. Desires discharge home later today. Const alert and no apparent distress General Appearance: cooperative and comfortable Exam Limitations: no limitations HEENT normocephalic Eyes General Eye: normal appearance of both eyes Neck full ROM General: normal visual inspection Chest Chest: symmetrical chest wall rise Resp normal respiratory effort and normal air movement Effort and Inspection: symmetric chest movement Auscultation: clear to auscultation bilaterally Cardio regular rate and regular rhythm GI normal to inspection, nondistended, normoactive bowel sounds Back/Spine normal ROM Extremity full ROM and no calf tenderness General Extremity: normal exam except as noted Skin no rashes or lesions noted Wound Narrative: Dressing is dry and intact. Neuro CN's II-XII intact bilaterally Psych mental status grossly normal Weight / BMI Weight Weight: 277 lb Body Mass Index (BMI) 43.4 ABG / Lab / Microbiology Data 06/14/25 05:40 D/C Instructions Discharge Activity: May Drive (2 weeks) and May Shower May resume sexual activity in: 6-8 weeks Weight Bearing Status: Weight bearing as tolerated Lifting Restricted to (Lbs): 25 Call your doctor if your incision/area has: Continuous Slow Oozing, Sudden Increased Bleeding, Increased Pain/ Swelling, Increased Redness, Foul Smelling Discharge and Swelling at the incision site Call your doctor if you observe: Fever of 101 or Higher, Numbness or Tingling, Using more than 1 pad per hour, Shortness of breath, Dizziness, Swelling in the ankles, Chest pain, Calf discomfort and Uncontrolled pain Suture Line Care: Avoid Pulling/Pushing Remove Dressing in: 5 days (Remove yourself or call office and schedule appointment for dressing removal.) DC O2, CPAP, BIPAP Needs Home O2 Discharge instructions: No When: 5 days for dressing removal or 2 weeks for post appointment. Meaningful Use Info Meaningful Use Meaningful Use Diagnoses (Choose all that apply): None applicable Discharge Plan Admission Admit Date/Time: 06/13/25 09:27 Primary Reason for Your Visit: Delivery Attending Provider: Jennifer Troy Primary Care Provider: Care Physician,Missy Primary Discharge Orders/Prescriptions Prescriptions: New sennosides-docusate sodium [Stimulant Laxative Plus] 8.6-50 mg Tablet 1 - 2 tab PO DAILY Qty: 0 0RF acetaminophen 500 mg Tablet 1,000 mg PO Q6 Qty: 0 0RF ibuprofen 600 mg Tablet 600 mg PO Q6H Qty: 0 0RF oxycodone 5 mg Tablet 5 - 10 mg PO Q4H PRN PRN (Reason: Pain Score 4-10) 3 Days Qty: 10 0RF Continued [id number] 1 mg Tablet 1 tab PO DAILY albuterol 90 mcg/actuation Aerosol 1 - 2 mcg INHALATION PRN PRN (Reason: Breathing) No Action famotidine [Pepcid] 20 mg Tablet 20 mg PO BID acetaminophen [Tylenol] 325 mg Capsule 650 mg PO Q6H PRN (Reason: Pain) Referrals / Follow Up: Care Physician,No Primary [Primary Care Provider, Medical] Disposition Disposition (needs filled in before D/C Order can be placed): Home, Self Care
[2025-06-15 08:25] VITALS: BP 122/70; PULSE 70; RESP 16; TEMP 36.4; O2SAT 98
[2025-06-15] MEDS: Senna/Docusate Sodium 1 Tablet PO (11:09)
== END 2025-06-15 12:00 | disposition home or self-care (01) | DRG 788 ==
PROVIDERS: Admitting Provider Obstetrics & Gynecology; Referring Provider Obstetrics & Gynecology; Visit Provider Obstetrics & Gynecology
PROC: 10D00Z1 Extraction of Products of Conception, Low, Open Approach (ICD-10-PCS; CPT 59514; principal; 2025-06-13 11:45)
DX: O99.52 Diseases of the respiratory system complicating childbirth (principal); J45.909 Unspecified asthma, uncomplicated; O34.211 Maternal care for low transverse scar from previous cesarean delivery; Z3A.39 39 weeks gestation of pregnancy; Z37.0 Single live birth
CPT/HCPCS: 59025; 59050; 85025; 85027; 86780; 86850; 86900; 86901; 99221; A4216; G0378; J2405